=== PATIENT | female | born 1960 ===

== ENCOUNTER 2022-06-24 05:34 | Day surgery (SDC) | payer OTHER ==
[~2022-06-24] VITALS: Ht 160 cm; Wt 72.6 kg
[~2022-06-24 05:34] MED LIST: B-COMPLEX WITH1 EAC2 PO; CENTRUM CHEWAB1 EAC1 PO; CHILDREN'S ASPI81 MG PO; HORIZANT600 MG PO; MAGNESIUM400 MG PO; VERAPAMIL ER240 MG PO; ZOLOFT100 MG PO
== END 2022-06-24 13:45 | disposition home or self-care (01) ==
LOC: CIR.AMB 05:34
PROVIDERS: ATTEND Orthopaedic Surgery Hand Surgery
DX: M19.042 Primary osteoarthritis, left hand (principal); R22.32 Localized swelling, mass and lump, left upper limb; I10 Essential (primary) hypertension; Z20.822 Contact with and (suspected) exposure to COVID-19; E11.9 Type 2 diabetes mellitus without complications; E78.00 Pure hypercholesterolemia, unspecified